=== PATIENT | male | born 1945 | race Caucasian/White ===

== ENCOUNTER → 2020-12-26 08:55 | Outpatient (BNVA) | payer OTHER, SELFPAY | PROVIDERS: PCP Internal Medicine; Visit Provider Urology ==

== ENCOUNTER 2025-08-16 10:35 | Outpatient (AMB) | payer OTHER, SELFPAY ==
--- NOTE | 2025-08-16 10:35 | MHC.OFFVIS ---
Intake Visit Reasons: H/o brachytherapy seeding for postate cancer now w Intake Note: New Patient is present for H/O Brachy Therapy seeding for [facility] Rx: Tamsulosin, Meloxicam Blood Thinners: none Imaging completed: none Talent Development Specialist Required: No Accompanied by: Self / Same As Patient Allergies meclizine (Bonine) Allergy (Unknown, Verified 08/16/25 10:37) Unknown HPI Comments Details: Humberto is a very pleasant male. He is a patient of Dr Nunez. He is seen in the office today for the following urologic conditions. - urgency and frequency - prostate cancer Continued adequate control of PSA Feels urinary function is tolerable Has been on tamsulosin Still uses high-dose Cialis for erections Prescription provided Prostate cancer: Well controlled PSA Prostate cancer was diagnosed 10/[address] Mccarty. Diagnosis was reached by needle biopsy, for elevated PSA, PSA at diagnosis 4.6, size at TRUS 34cc. The Joe grade is 3+3 = 6. TNM Classification of Malignant Tumours (TNM) T1c. The D'Nena (NCCN) risk category is Low Risk (PSA< 10, Gl < 7, T1c). Initial therapy included Primary treatment, Brachytherapy Dr Carlisle at [facility]. Recent labs included a PSA (prostate-specific antigen) April 2014 1.6, December 2014 1.1, October 2016 1.1, March 2017 0.1 10/05 < 0.1 04/06 < 0.1 10/06 < 0.1 10/07 < 0.1, 01/07 < 0.1 Therapeutic plan: Continue surveillance PSA [facility] Medical History (Updated 08/16/25 @ 11:25 by Hilario Lucia MD) History of brachytherapy Gout Erectile dysfunction following interstitial seed therapy Prostate cancer Surgical History (Updated 12/26/20 @ 08:57 by CODY Talbot) H/O arthroscopy of knee History of tonsillectomy Family History (Updated 12/26/20 @ 08:58 by CODY Talbot) Father Cancer Review of Systems Const Denies chills and Denies fever(s) Card Reports no additional complaints and Denies syncope Resp Denies cough GI Denies abdominal pain and Denies heartburn Reports as per HPI and Denies change in libido Neuro Denies syncope Psych Denies change in libido Endo Denies change in libido Physical Exam Const General: cooperative, healthy appearing, comfortable and no acute distress Orientation/consciousness: patient oriented x3 HEENT Face and sinus: Yes normal facial exam Mouth: moist mucous membranes Neck Neck: Yes normal visual inspection, Yes full ROM and Yes trachea midline Chest Chest palpation & inspection: normal inspection of the chest Resp Effort & Inspection: normal respiratory effort, able to speak in complete sentences and no respiratory distress GI Inspection: Yes normal to inspection Back/Spine/Pelvis Cervical Spine: normal cervical lordosis Thoracic/Lumbar Spine: thoracic and lumbar spine normal to inspection Skin General skin exam: no rashes or lesions noted Neuro General: patient oriented x3, gait normal, tone normal and moves all extremities Extrem General: Yes normal to inspection and Yes capillary refill normal Results AMB Urinalysis, Automated UA Leukoctes 0 Kady/uL Last Edit by Annette Hollingsworth [facility] on 08/16/25 13:19 UA Nitrite Negative Last Edit by Annette Hollingsworth [facility] on 08/16/25 13:19 UA Urobilinogen 0.2 mg/dL Last Edit by Annette Hollingsworth [facility] on 08/16/25 13:19 UA Protein 15 mg/dL Last Edit by Annette Hollingsworth [facility] on 08/16/25 13:19 UA pH 6.0 Last Edit by Annette Hollingsworth [facility] on 08/16/25 13:19 UA Blood 0 Ruben/uL Last Edit by Annette Hollingsworth [facility] on 08/16/25 13:19 UA Specific Hopkins 1.015 Last Edit by Annette Hollingsworth [facility] on 08/16/25 13:19 UA Ketone Negative Last Edit by Annette Hollingsworth [facility] on 08/16/25 13:19 UA Bilirubin 0 mg/dL Last Edit by Annette Hollingsworth [facility] on 08/16/25 13:19 UA Glucose 1000 mg/dL Last Edit by Annette Hollingsworth [facility] on 08/16/25 13:19 Results Reviewed Results Reviewed: Laboratory Last Values Urine pH (Auto) 6.0 08/16/25 13:18 Specific Hopkins (Auto) 1.015 08/16/25 13:18 Urine Protein (Auto) 15 mg/dL 08/16/25 13:18 Glucose (UA)(Auto) 1000 mg/dL 08/16/25 13:18 Urine Ketones (Auto) Negative 08/16/25 13:18 Urine Blood (Auto) 0 Ruben/uL 08/16/25 13:18 Urine Nitrite (Auto) Negative 08/16/25 13:18 Urine Bilirubin (Auto) 0 mg/dL 08/16/25 13:18 Urine Urobilinogen (Auto) 0.2 mg/dL 08/16/25 13:18 Leukocyte Esterase (Auto) 0 Kady/uL 08/16/25 13:18 Assessment & Plan Assessment & Plan (1) Erectile dysfunction following interstitial seed therapy: Code(s): N52.36 - Erectile dysfunction following interstitial seed therapy Category: Medical (2) Nocturia more than twice per night: Code(s): R35.1 - Nocturia Category: Medical (3) Urinary urgency: Code(s): R39.15 - Urgency of urination Category: Medical Plan Prescription provided Six-month follow-up Medications: New tadalafil [id number] [facility] GroupGDRX Member [id number] 20 mg PO ONCE PRN 30 tabs 1RF sexual activity 30 days N52.36 - Erectile dysfunction following interstitial seed therapy Patient Instructions: This note is constructed using voice recognition software. While every effort has been made to ensure accuracy compressor operator errors may have been included. Imaging studies, laboratory and physical exam results were discussed and reviewed in detail. No major barriers to patient understanding were identified. An opportunity to ask questions regarding the treatment plan was provided. All questions were answered. The patient expressed understanding and agreement with the above treatment plan. The patient is aware they should contact our office by phone for worsening of their current condition or the appearance of new urologic symptoms. Compliance is encouraged with any medications and followup testing that is ordered. It is a privilege to participate in the urologic care of your patient. If you have any questions or concerns regarding treatment for the above conditions, or other urologic issues, please do not hesitate to contact me. The office telephone contact is [phone]. Sincerely, Dr Hilario Lucia MD, [facility] - Urology Compassionate Specialist Care for the Genitourinary System Coding Level of Care Code Est Pt Level 4 (50902) Diagnoses Erectile dysfunction following interstitial seed therapy N52.36 Nocturia more than twice per night R35.1 Urinary urgency R39.15
--- OUTSIDE RECORDS SUMMARY | 2025-08-16 13:19 | XMS_ITS | Clinical Summary ---
Author Organization [facility] Address [address] [place] [address] Care Team Providers Care Roving Department Supervisor Name Role Phone Dina Smith MD Primary Care Provider [phone] Allergies No known active allergies Medications No known medications Active Problems No known active problems Social History Tobacco Use Types Packs/Day Years Used Date Smoking Tobacco: Never Assessed Sex and Gender Information Value Date Recorded Sex Assigned at Male 06/02/2024 3:46 PM EDT Gender Identity Not on file Sexual Orientation Not on file Job Start Date Occupation Industry Not on file Not on file Not on file Last Filed Vital Signs Vital Sign Reading Time Taken Comments Blood Pressure 146/84 06/02/2024 3:24 PM EDT Pulse 60 06/02/2024 3:24 PM EDT Temperature 36.8 C (98.2 F) 06/02/2024 3:24 PM EDT Respiratory Rate 16 06/02/2024 3:24 PM EDT Oxygen Saturation 99% 06/02/2024 3:24 PM EDT Inhaled Oxygen Concentration - - Weight 90.7 kg (200 lb) 06/02/2024 3:24 PM EDT Height 180.3 cm (5' 11 ) 06/02/2024 3:24 PM EDT Body Mass Index 27.89 06/02/2024 3:24 PM EDT Plan of Treatment Health Maintenance Due Date Last Done Comments COVID-19 Vaccine (#1) 1943 Depression Screening 1955 Preventative Health Evaluation 1961 DTap / Tdap / Td (1 - Tdap) 1962 Shingrix-Zoster Vaccine (1 of 2) 1993 Fall Risk Assessment 2008 Pneumococcal Vaccine (1 of 1 - PCV) 2008 RSV Adult > 60+ Yrs or Pregn ant (1 - 1-dose 75+ series) 2018 Influenza Vaccine (#1) 2025 Hepatitis B Vaccines Aged Out No long er eligible based on patient's age to complete this topic RSV Ped < 20 months Aged Out No longe r eligible based on patient's age to complete this topic Care Teams Roving Department Supervisor Relationship Specialty Start Date End Date Dina Smith MD [address] [place] [address] PCP - General Internal Medicine 06/02/24
--- OUTSIDE RECORDS SUMMARY | 2025-08-16 13:20 | XMS_ITS | Clinical Summary ---
Author Organization [facility] Address [address] [place] [address] Care Team Providers Care Can Solderer Name Role Phone Dina Smith MD Primary Care Provider [phone] Allergies No known active allergies Medications allopurinol 100 MG tablet 06/18/2023 Active ASPIRIN LOW DOSE 81 MG EC tablet Take 1 tablet (81 mg total) by mouth daily 06/25/2023 Active atorvastatin 40 MG tablet Take 1 tablet (40 mg total) by mouth at bedtime 07/02/2023 Active clopidogrel 75 MG tablet 05/29/2023 Active lisinopril 5 MG tablet Take 1 tablet (5 mg total) by mouth daily 04/29/2023 Active metoprolol succinate (TOPROL-XL) 50 MG extended release tablet Take 1 tablet (50 mg total) by mouth 05/09/2022 Active predniSONE (DELTASONE) 10 MG tablet 40mg for 2 days, 30mg for 2 days, 20mg for 2 days 10mg for 2 days 20 tablet 07/12/2023 Active Social History Tobacco Use Types Packs/Day Years Used Date Smoking Tobacco: Never Smokeless Tobacco: Never Tobacco Cessation:Counseling Given: Not Answered Alcohol Use Standard Drinks/Week Comments Not Currently 0 (1 standard drink = 0.6 oz pur e alcohol) Sex and Gender Information Value Date Recorded Sex Assigned at Male 07/12/2023 12:36 PM EDT Legal Sex Male 12:06 PM EDT Gender Identity Male 07/12/2023 12:36 PM EDT Sexual Orientation Not on file Last Filed Vital Signs Vital Sign Reading Time Taken Comments Blood Pressure 128/77 07/12/2023 12:31 PM EDT Pulse 60 07/12/2023 12:31 PM EDT Temperature 36.4 C (97.6 F) 07/12/2023 12:31 PM EDT Respiratory Rate 18 07/12/2023 12:31 PM EDT Oxygen Saturation 98% 07/12/2023 12:31 PM EDT Inhaled Oxygen Concentration - - Weight 93 kg (205 lb) 07/12/2023 12:31 PM EDT Height 180.3 cm (5' 11 ) 07/12/2023 12:31 PM EDT Body Mass Index 28.59 07/12/2023 12:31 PM EDT Plan of Treatment Not on file Insurance [facility] [place] [address] COMMERCIAL,HMO,[place] [id number] Care Teams Can Solderer Relationship Specialty Start Date End Date Dina Smith MD [address] [place] [address], [address] [place] [address] PCP - General Internal Medicine 07/12/23
--- OUTSIDE RECORDS SUMMARY | 2025-08-16 13:20 | XMS_ITS | Patient Health Record ---
Author Organization [facility] Address [address] [facility] [address] [place] [address] Care Team Providers Care Last Waxer Name Role Phone Dina Smith Primary Care Provider ARAVIND Flores Unavailable [phone] Allergies No Known Allergies Reason For Referral No Information Medications Medication SIG (Take, Route, Frequency, Duration) Notes Start Date End Date Status Aspirin 81 81 MG 1 tablet Orally Once a day Active Doxycycline Monohydrate 100 MG 1 capsule Orally every 12 hrs; Duration: 7 days 06/28/2024 Active Atorvastatin Calcium 80 MG 1 tablet Orally Once a day Active Allopurinol 200 MG 1 tablet Orally Once a day Active Antibiotic Not-Takin g Lisinopril Active predniSONE Active Metoprolol Succinate ER 50 MG 1 tablet Orally Once a day Active Metoprolol Succinate ER 25 MG 1 tablet Orally Once a day Active Clopidogrel Bisulfate 75 MG 1 tablet Orally Once a day Active metFORMIN HCl 500 MG 1 tablet with a jong l Orally Once a day Active Problems Problem Type SNOMED Code ICD Code Onset Dates Problem Status W/U Status Risk Notes 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 [address] [place] [phone] [id number] Humberto Morales Self - patient is the insured Medical (General) History Medical History History ICD Code Arteriosclerotic heart disease chronic kidney disease- stage 3 cerebral vascular accident Type 2 Diabetes Mellitus Gout Hyperlipidemia Hypertension Prostate Neoplasm, Malignant Surgical History Surgery Date(Month/Year) Arthroscopic Knee surgery, left age 38 Cataract surgery, bilateral 2013 Coronary artery bypass graft 11/2021 Hospitalization History Reason Date(Month/Year)
--- OUTSIDE RECORDS SUMMARY | 2025-08-16 13:21 | XMS_ITS | Clinical Summary ---
Author Organization [facility] Address [address] [place] [phone] Phone Care Team Providers Care Carry In Worker Name Role Phone Dina Smith MD Primary Care Provider Allergies No known active allergies Medications Aspirin Low Dose 81 MG EC tablet Take 81 mg by mouth 1 (one) time each day 12/20/2021 Active lisinopril 5 MG tablet Take 5 mg by mouth 1 (one) time each day 05/02/2022 Active metoprolol succinate XL (TOPROL XL) 50 MG 24 hr tablet Take 50 mg by mouth 1 (one) time each day 05/09/2022 Active Cholecalciferol (Vitamin D-3) 25 MCG (1000 UT) capsule Take 1 tablet by mouth 1 (one) time each day 90 capsule 3 12/17/2023 Active colchicine 0.6 MG tablet Take 0.6 mg by mouth 1 (one) time each day 12/09/2024 Active metFORMIN (GLUCOPHAGE) 500 MG tablet TAKE 1 TABLET(500 MG) BY MOUTH IN THE MORNING AND IN THE EVENING WITH MEALS 180 tablet 3 12/16/2024 Active allopurinol (ZYLOPRIM) 100 MG tablet Take 2 tablets (200 mg total) by mouth 1 (one) time each day 180 tablet 3 12/16/2024 Active atorvastatin (LIPITOR) 80 MG tablet Take 1 tablet (80 mg total) by mouth 1 (one) time each day 90 tablet 3 12/16/2024 Active Farxiga 10 MG tablet Take 10 mg by mouth 01/03/2025 Active Vibegron 75 MG tablet Take by mouth Active Active Problems Problem Noted Date Diagnosed Date Gout, not otherwise specified 06/03/2022 Stage 3a chronic kidney disease 01/15/2022 Coronary arteriosclerosis 01/15/2022 Hypertensive disorder 01/15/2022 Malignant neoplasm of prostate 01/15/2022 Acute nontraumatic kidney injury 01/15/2022 Ischemic cardiomyopathy 01/15/2022 Encounters Date Type Department Care Team Description 06/15/2025 Orders Only [facility] [address] [place] [address] [address] [place] [phone] Travis Parker MD Stage 3a chronic kidney disease (HCC); Ischemic cardiomyopathy; Gout, not otherwise specified; Other acute kidney failure (HCC); Hypertensive disorder; Malignant neoplasm of prostate (HCC) 06/14/2025 8:00 AM EDT Office Visit [facility] [place] [id number] [phone] Travis Parker MD Stage 3a chronic kidney disease (HCC) (Primary Dx); Malignant neoplasm of prostate (HCC); Ischemic cardiomyopathy; Hypertensive disorder; Gout, not otherwise specified; Atherosclerosis of coronary artery bypass graft without angina pectoris, not otherwise specified; Other acute kidney failure (HCC) from Last 3 Months Family History Relation Status Comments Brother Alive Father Mother Social History Tobacco Use Types Packs/Day Years Used Date Smoking Tobacco: Never Smokeless Tobacco: Never Tobacco Cessation:Counseling Given: Not Answered Alcohol Use Standard Drinks/Week Comments Never 0 (1 standard drink = 0.6 oz pur e alcohol) Sex and Gender Information Value Date Recorded Sex Assigned at Not on file Legal Sex Male 9:13 AM EST Gender Identity Not on file Sexual Orientation Not on file Last Filed Vital Signs Vital Sign Reading Time Taken Comments Blood Pressure 118/80 06/14/2025 8:00 AM EDT Pulse 65 06/14/2025 8:00 AM EDT Temperature - - Respiratory Rate - - Oxygen Saturation 99% 06/14/2025 8:00 AM EDT Inhaled Oxygen Concentration - - Weight 88.9 kg (196 lb) 06/14/2025 8:00 AM EDT Height 180.3 cm (5' 11 ) 12/16/2024 8:03 AM EST Body Mass Index 27.34 12/16/2024 8:03 AM EST Plan of Treatment Upcoming Encounters Date Type Department Care Team (Late st Contact Info) Description 12/14/2025 8:40 AM EST Office Visit [facility] [address] [phone] Travis Parker MD [address] [phone] Health Maintenance Due Date Last Done Comments Pneumococcal Vaccine: 50+ Ye ars (1 of 2 - PCV) 1962 Influenza Vaccine (#1) 2025 Hepatitis B Vaccine Aged Out No longe r eligible based on patient's age to complete this topic Insurance [facility] Care Teams Carry In Worker Relationship Specialty Start Date End Date Dina Smith MD [address] [place] [address] PCP - General Internal Medicine 01/16/22
--- OUTSIDE RECORDS SUMMARY | 2025-08-16 13:21 | XMS_ITS | Clinical Summary ---
Author Organization [facility] Address [address] [place] [address] Care Team Providers Care Senior Water Resources Engineer Name Role Phone Dina Smith MD Primary Care Provider [phone] Social History Tobacco Use Types Packs/Day Years Used Date Smoking Tobacco: Never Assessed Sex and Gender Information Value Date Recorded Sex Assigned at Not on file Legal Sex Male 5:09 PM EST Gender Identity Not on file Sexual Orientation Not on file Obstetrics History Plan of Treatment Health Maintenance Due Date Last Done Comments DTaP,Tdap,and Td Vaccines (1 - Tdap) 1962 Pneumococcal Vaccine: 50+ Ye ars (1 of 1 - PCV) 1993 Zoster Vaccines (1 of 2) 1993 RSV Immunization Adult Patie nts (1 - 1-dose 75+ series) 2018 Cholesterol Screening (Lipid Panel) 08/04/2024 Falls Risk Assessment 08/04/2024 Social Influencers of Health Screening 08/04/2024 Depression Screening 10/20/2024 COVID-19 Vaccine ( - 2023-2 5 season) 2025 Influenza Vaccine (#1) 2025 HIB Vaccines Aged Out No longer eligi ble based on patient's age to complete this topic HPV Vaccines Aged Out No longer eligi ble based on patient's age to complete this topic Hepatitis A Vaccines Aged Out No long er eligible based on patient's age to complete this topic Hepatitis B Vaccines Aged Out No long er eligible based on patient's age to complete this topic IPV Vaccines Aged Out No longer eligi ble based on patient's age to complete this topic MMR Vaccines Aged Out No longer eligi ble based on patient's age to complete this topic Meningococcal ACWY Vaccine Aged Out N o longer eligible based on patient's age to complete this topic Meningococcal B Vaccine Aged Out No l onger eligible based on patient's age to complete this topic RSV Immunization Patients Un tiny 20 months Aged Out No longer eligible b ased on patient's age to complete this topic Varicella Vaccines Aged Out No longer eligible based on patient's age to complete this topic Care Teams Senior Water Resources Engineer Relationship Specialty Start Date End Date Dina Smith MD PCP - General 06/02/24
== END 2025-08-16 11:44 | disposition home or self-care (01) ==
LOC: HO.HUSH 10:36
PROVIDERS: PCP Internal Medicine; Visit Provider Urology
DX: N52.3 Postprocedural erectile dysfunction (principal); R35.1 Nocturia; R39.15 Urgency of urination
CPT/HCPCS: 99214